=== PATIENT | female | born 1980 | race Caucasian/White ===

== ENCOUNTER 2016-11-26 00:14 | Emergency (ER) | payer MEDICAID ==
[~2016-11-26 00:14] MED LIST: ADVAIR 1001 DISK W/D INH; ALBUTEROL17 GM INH; ARTHRITIS MED; BACITRACIN1 GM OP; BIRTH CONTROL; CLEOCIN HCL300 MG PO; CYMBALTA60 MG PO; FETZIMA80 MG PO; FLEXERIL10 MG PO; LAMICTAL XR300 M1 PO; MOTRIN800 MG PO; NABUMETONE750 MG PO; NORCO 5/325 TAB1 TAB PO; OXYCODONE/APAP PO; PHENERGAN W/CO120 ML PO; PREDNISONE20 MG PO; PRENATAL VITAMI1 TAB PO; SEROQUEL50 MG PO; SYNTHROID25 MCG PO; SYNTHROID50 MCG PO; TYLENOL WITH C1 EACH PO; TYLENOL500 MG; VICODIN 5/500 T1 TAB PO; VYVANSE30 M1 PO; WELLBUTRIN XL300 MG; XANAX0.5 MG PO; ZENCHENT 0.4 M1 EACH PO; ZOLOFT
[2016-11-26 01:41] LABS: BASO % 0.3 % (0-2); EOS % 3.5 % (0-7); EOSINOPHIL ABSOLUTE COUNT 0.3 tho/cmm (0.0-0.7); HCT-HEMATOCRIT 37.5 % (34.0-49.0); HGB-HEMOGLOBIN 12.8 gm/dl (12.0-15.5); IMMATURE GRANULOCYTES ABSOLUTE 0.04 tho/cmm (0-0.03); IMMATURE GRANULOCYTES PERCENT 0.4 % (0-0.3); LYMPH % 26.2 % (20-45); LYMPH ABSOLUTE COUNT 2.4 tho/cmm (0.8-4.5); MCH (MEAN CORPUSCULAR HGB) 31.1 pg (28.0-32.0); MCHC MEAN CORPUSCULAR HGB CONC 34.1 % (32.0-36.0); MEAN PLATELET VOLUME 8.9 cmc (9.4-12.4); MONO % 8.4 % (0-12); MONOCYTE ABSOLUTE COUNT 0.8 tho/cmm (0.0-1.2); NEUTROPHIL ABSOLUTE COUNT 5.6 tho/cmm (1.6-8.0); NEUTROPHIL-AUTOMATED 5.6 tho/cmm (1.6-8.0); NEUTROPHILS % 61.2 % (40-80); PLATELET COUNT 331 tho/cmm (150-450); RED BLOOD COUNT 4.12 mil/cmm (4.00-5.20); RED CELL DISTRIBUTION WIDTH 12.9 % (12.4-16.4); WHITE BLOOD COUNT 9.2 tho/cmm (4.0-10.0)
[2016-11-26 01:42] LABS: ALBUMIN 3.5 g/dl (3.5-5.0); ALKALINE PHOSPHATASE 86 U/L (33-138); ALT/SGPT 44 U/L (12-78); ANION GAP 12 mmol/L (0-20); AST/SGOT 19 U/L (10-40); BILIRUBIN,TOTAL 0.1 mg/dl (0-1.5); BLOOD UREA NITROGEN 12 mg/dl (6-24); CALCIUM 8.9 mg/dl (8.5-10.5); CARBON DIOXIDE-VENOUS 27 mmol/L (22-32); CHLORIDE 106 mmol/l (96-110); CREATININE 0.84 mg/dl (0.50-1.10); GLUCOSE 152 mg/dL (70-110); LIPASE 183 U/L (73-393); POTASSIUM 3.7 mmol/L (3.7-5.1); PREGNANCY-SERUM NEGATIVE (NEGATIVE); SODIUM 141 mmol/L (135-145); eGFR VALUE FOR BLACK >90 mL/Min
[2016-11-26] MEDS ORDERED: PEPCID20 M1 PO (01:50)
== END 2016-11-26 02:04 ==
LOC: EDMED 00:14
PROVIDERS: Emergency Medicine
DX: R10.13 Epigastric pain (principal); E03.9 Hypothyroidism, unspecified; F90.9 Attention-deficit hyperactivity disorder, unspecified type; K21.9 Gastro-esophageal reflux disease without esophagitis; F17.200 Nicotine dependence, unspecified, uncomplicated